=== PATIENT | female | born 1980 | race Caucasian/White ===

== ENCOUNTER 2017-05-23 14:50 | Emergency (ER) | payer BC ==
[2017-05-23 14:58] VITALS: BP 124/72
[2017-05-23] MEDS ORDERED: LIDOCAINE 1% INJ-PF (10 MG/ML) 30 ML SDV INJ ONE (15:33)
--- NOTE | 2017-05-23 15:41 | ER Document Report ---
HPI - HPI Pain Level: 5 Notes: Patient is a 37-year-old female presents the ED complaining of an abscess to her left medial groin/perineum area 3-4 days. Patient states that she did try to asmita it without any success. The abscess has gotten more painful last 2 days. She has not had any medications for symptoms. The pain does not radiate otherwise. She still eating drink without any problems. Patient denies any medicine allergies. She does not take any medicines daily. No significant past medical history otherwise. Denies any history of MRSA. Denies headaches, fever, URI, sore throat, chest pain, palpitations, shortness of breath, cough, wheeze, abdominal pain, nausea/vomiting/diarrhea, dysuria, hematuria, vaginal discharge/odor. - ROS Notes: REVIEW OF SYSTEMS: CONSTITUTIONAL : Denies fever, chills, or sweats. Denies recent illness. EENT: Denies eye, ear, throat, or mouth pain or symptoms. Denies nasal or sinus congestion or discharge. Denies throat, tongue, or mouth swelling or difficulty swallowing. CARDIOVASCULAR: Denies chest pain. Denies palpitations or racing or irregular heart beat. Denies ankle edema. RESPIRATORY: Denies cough, cold, or chest congestion. Denies shortness of breath, difficulty breathing, or wheezing. GASTROINTESTINAL: Denies abdominal pain or distention. Denies nausea, vomiting , or diarrhea. Denies blood in vomitus, stools, or per rectum. Denies black, tarry stools. Denies constipation. GENITOURINARY: Denies difficulty urinating, painful urination, burning, frequency, blood in urine, or discharge. FEMALE GENITOURINARY: Denies vaginal bleeding, heavy or abnormal periods, irregular periods. Denies vaginal discharge or odor. MUSCULOSKELETAL: Denies back or neck pain or stiffness. Denies joint pain or swelling. SKIN: see hpi NEUROLOGICAL: Denies confusion or altered mental status. Denies passing out or loss of consciousness. Denies dizziness or lightheadedness. Denies headache. Denies weakness or paralysis or loss of use of either side. Denies problems with gait or speech. Denies sensory loss, numbness, or tingling. Denies seizures. ALL OTHER SYSTEMS REVIEWED AND NEGATIVE. Dictation was performed using [employer] recognition software - DERM Skin Color: Normal Past Medical History - Social History Smoking Status: Unknown if Ever Smoked Family History: Reviewed & Not Pertinent Patient has suicidal ideation: No Patient has homicidal ideation: No Renal/ Medical History: Denies: Hx Peritoneal Dialysis Vertical Provider Document - CONSTITUTIONAL Notes: PHYSICAL EXAMINATION: GENERAL: Well-appearing, well-nourished and in no acute distress. NECK: Normal range of motion, supple without lymphadenopathy LUNGS: Breath sounds clear to auscultation bilaterally and equal. No wheezes rales or rhonchi. HEART: Regular rate and rhythm without murmurs, rubs, gallops. Extremities: No cyanosis, clubbing, or edema b/l. Peripheral pulses 2+. Capillary refill less than 3 seconds. : external near abscess did not show any discharge, lesions, or ulcerations. PSYCH: Normal mood, normal affect. SKIN: + abscess (approx 1-1.3cm), erythema, without discharge noted to the left med groin/left perineum area. + tenderness to palp with fluid pocket and mild surrounding erythema. - INFECTION CONTROL TRAVEL OUTSIDE OF THE [place] IN LAST 30 DAYS: No - RESPIRATORY O2 Sat by Pulse Oximetry: 99 Course - Re-evaluation Re-evalutation: 05/23/17 16:48 Patient is an afebrile, well-hydrated, 37-year-old female who presents the ED with a perineum/medial groin abscess surrounding mild cellulitis. Vitals are stable. PE otherwise unremarkable. I&D was performed without any complications. Wound was packed using quarter inch iodoform. Wound culture was obtained. I will cover her with Bactrim DS p.o. twice daily for 10 days along with Keflex 500 mg p.o. twice daily for 10 days. Patient instructed to take medication with food. C. difficile precautions were reviewed. Wound instructions reviewed. Packing will need removed and replaced in the next 2-3 days. Recheck with her PCM in 2-3 days. Return to the ED with any worsening/ concerning symptoms otherwise. Patient may return to the ED for recheck of her abscess as well. She is in agreement. - Vital Signs Vital signs: Temp Pulse Resp BP Pulse Ox 97.8 F 68 16 124/72 99 05/23/17 14:57 05/23/17 14:57 05/23/17 14:57 05/23/17 14:57 05/23/17 14:57 Procedures - Incision and Drainage Left Groin Time completed: 16:30 Type: Simple Anesthetic type: 1% Lidocaine mL's of anesthetic: 7 Blade size: 11 I&D procedure: Shurclens applied, Iodoform packing placed, Sterile dressing applied Incision Method: Incision made with needle Amount/type of drainage: bloody and pustular Notes: 05/23/17 16:49 Incision and drainage procedure, risks, benefits reviewed with the patient. Verbal and written consent obtained. Sterile technique utilized. The area was extensively cleansed utilizing shurclens, iodine, and saline. A 21-gauge needle was utilized to anesthetize the area using 7 mL's of 1% lidocaine without epinephrine. Once adequate anesthesia was provided, a #11 scalpel was utilized to make a 1.5 cm slight eliptical incision at the site of the abscess. Copious amounts of pustular material was expressed. Wound culture obtained. Hemostats were then utilized to break up any remaining muscular pockets within the abscess. The wound was then lightly packed using 1/4" iodoform. Wound dressing and triple antibiotic placed. Minimal blood loss (approximately 2-3 cc's). Patient tolerated procedure well. No complications. Discharge - Discharge Clinical Impression: Abscess Condition: Stable Disposition: HOME, SELF-CARE Instructions: Abscess ([facility]), Cephalexin ([facility]), Post Incision and Drainage, Trimethoprim-Sulfa ([facility]) Additional Instructions: Do not shower or bathe for 24 hours. After 24 hours she may shower but no submersion of the wound under water. Keep the original dressing on the wound for 24 hours unless the drainage stops through. Change the dressing daily thereafter and use a small amount of triple antibiotic ointment over the open wound. Return to the ED and/or your PCM in 2-3 days for recheck and continue direction for wound packing. Monitor for any signs of worsening pain or redness , streaks, and/or fever. Take medications as directed. Return to the ED with any worsening symptoms and/or development of fever, headache, chest pain, palpitations, syncope, shortness of breath, trouble breathing, abdominal pain, n/v/d, worsening abscess, erythema, red streaks, or other worsening symptoms that are concerning to you. Prescriptions: Cephalexin Monohydrate [Keflex 500 mg Capsule] 500 mg PO BID #20 capsule Sulfamethoxazole/Trimethoprim [Bactrim Ds Tablet] 1 each PO BID #20 tablet Referrals: BRAN HARRELL MD [ACTIVE STAFF] - Follow up as needed
== END 2017-05-23 17:15 | disposition home or self-care (01) ==
LOC: ER 14:50
PROC: 0Y963ZZ Drainage of Left Inguinal Region, Percutaneous Approach (ICD-10-PCS; principal; 2017-05-23)
DX: L02.214 Cutaneous abscess of groin (principal); L03.314 Cellulitis of groin
CPT/HCPCS: 87070; 87075; 87077; 87205; 99283; A6266